=== PATIENT | female | born 1945 | race Caucasian/White ===

== ENCOUNTER → 2016-12-17 13:24 | Outpatient (CLI) | payer MEDICARE, OTHER ==
[2013-12-27 09:34] VITALS: BMI 40.0
[~2016-12-17 13:24] MED LIST: ACETAMINOPHEN325 MG PO; ASPIRIN EC81 MG PO; BENADRYL25 MG PO; CELEXA20 MG PO; CIPRO500 MG PO; CYCLOBENZAPRINE10 MG PO; LEVAQUIN750 MG PO; LISINOPRIL10 MG PO; MAG OXIDE 400MG; MAG-OXIDE400 MG PO; MUCINEX600 MG PO; MYSOLINE 50 MG50 MG PO; NASACORT AQ16.5 GM NS; NORCO 10/325 TA1 TA1 PO; NORVASC5 MG PO; NYSTATIN OINTME15 GM TP; OPTIVE EYE DROP30 ML EACH EYE; PACERONE200 MG PO; PRAVACHOL40 MG PO; PROTONIX40 MG PO; RELAFEN750 MG PO; REQUIP0.25 MG PO; RESTORIL15 MG PO; SYNTHROID50 MCG PO; SYSTANE 0.3-0.4%5 ML EACH EYE; VITAMIN D2000 UNIT
== END | disposition home or self-care (01) ==
LOC: D.MRI 13:24
DX: M54.5 Low back pain (principal)

== ENCOUNTER → 2017-05-02 15:41 | Outpatient (CLI) | payer MEDICARE, OTHER ==
[2013-12-27 09:34] VITALS: BMI 40.0
== END | disposition home or self-care (01) ==
LOC: D.CT 15:30
DX: R31.9 Hematuria, unspecified (principal)

== ENCOUNTER → 2017-12-01 09:12 | Outpatient (CLI) | payer MEDICARE, OTHER ==
[2013-12-27 09:34] VITALS: BMI 40.0
== END | disposition home or self-care (01) ==
LOC: D.RAD 09:12
DX: R13.10 Dysphagia, unspecified (principal)

== ENCOUNTER → 2018-06-15 20:20 | Outpatient (CLI) | payer MEDICARE, OTHER ==
[2013-12-27 09:34] VITALS: BMI 40.0
== END | disposition home or self-care (01) ==
LOC: D.MAMMO 13:00
DX: Z12.31 Encounter for screening mammogram for malignant neoplasm of breast (principal)

== ENCOUNTER 2019-04-09 07:10 | Day surgery (SDC) | payer MEDICARE, OTHER ==
[2019-04-06 11:47] LABS: HEMATOCRIT 41.3 % (36.0-48.0); HEMOGLOBIN 13.7 g/dL (12-16); MCH 31.9 pg (26.0-34.0); MCHC 33.2 g/dL (31.0-37.0); RBC 4.3 10x6/uL (4.00-5.40); RDW 14.4 % (11.5-14.5); WBC 7.8 10x3/uL (4.8-10.8)
[~2019-04-09] VITALS: Ht 167.6 cm; Wt 79.8 kg
[~2019-04-09 07:10] MED LIST changes: +COZAAR50 MG PO
[2019-04-09 07:31] VITALS: BP 132/67; Ht 167.6 cm; Wt 79.8 kg
[2019-04-09] MEDS ORDERED: HYDROCODON-ACE1 EA10 PO (09:34)
--- NOTE | 2019-04-09 10:53 | NUR ---
0944-REC'D FROM SURGERY. AWAKE AND ALERT, DENIES PAIN,DRESSING TO LEFT ARM CDI. CAP REFILL WNL. ABLE TO WIGGLE DIGITS. CL IN EASY REACH. FAMILY AT BEDSIDE.
--- NOTE | 2019-04-09 10:55 | NUR ---
1010-TOLERATED TRAY. AMBULATED TO RESTROOM AND URINATED. DRESSING CDI TO LEFT ARM, IN SLING, ABLE TO WIGGLE DIGITS. CAP REFILL WNL.DENIES PAIN. VSS. SPOUSE AT BEDSIDE. AWAITING FOR TRANSPORTATION HOME.
--- NOTE | 2019-04-09 10:55 | NUR ---
1000-FULL LIQUID TRAY TO ROOM.
--- NOTE | 2019-04-09 10:56 | NUR ---
1020-REMOVED IV FROM RIGHT HAND WITH CATH INTACT,DISPOSED INTO SHARPS.COVERED SITE WITH BANDAID. DRESSING CONTINUE TO BE CDI,WIGGLES DIGITS, CAP REFILL WNL.DENIES PAIN. REVIEWED POST OPERATIVE INSTRUCTIONS, FOLLOW UP APPOINTMENT. VERBALIZED UNDERSTANDING.
--- NOTE | 2019-04-09 10:57 | NUR ---
1045-DAUGHTER IN LAW ARRIVED TO DRIVE HOME. ESCORTED OUT VOA W/C,STABLE,DISCHARGE INSTRUCTIONS IN HAND
--- NOTE | 2019-04-09 11:27 | OP ---
PATIENT NAME: JAYESH MOJICA MEDICAL RECORD: [id number] :41 LOCATION:D.OPS ADMISSION DATE: SURGEON: JOHANN GALVAN MD DATE OF OPERATION: 04/09/2019 PREOPERATIVE DIAGNOSES: 1. Trigger thumb of the left hand. 2. Painful osteophyte MCP joint, second digit left hand. POSTOPERATIVE DIAGNOSES: 1. Trigger thumb of the left hand. 2. Painful osteophyte MCP joint, second digit left hand. PROCEDURES: 1. Release of trigger thumb, left hand. 2. Excision of painful osteophyte of the left MCP joint of her second digit. SURGEON: Dr. Johann Galvan OTOLARYNGOLOGY SURGEON: ARISTIDES Briceño ANESTHESIA: TIVA with regional. INTRAOPERATIVE COMPLICATIONS: None. SUMMARY OF PATHOLOGIC FINDINGS: The patient indeed has a trigger thumb with thickened A1 curtis. Furthermore, the patient had prominent nodularity, had been noted to be very painful in the past on the radial aspect of the dorsum of the second MCP joint. OPERATIVE SUMMARY IN DETAIL: After obtaining the appropriate preoperative orthopedic surgery consent as well as anesthetic consultation, evaluation, and clearance, the patient was brought to the operating room, was placed on table in supine position. After TIVA with regional was administered, tourniquet was placed about the proximal aspect of left upper extremity. Left upper extremity was then prepped and draped in routine sterile fashion. Incision was made over the base of the left thumb over the A1 curtis, taken gently down to the A1 curtis, which was identified and incised in its entirety. The tendon was inspected and was pristine. Having completed this, attention was turned to the MCP joint of the index finger. A small incision made over the prominence of the bone spur. This was gently dissected down. Care was taken to avoid damage to the dorsal bella, the bone spur was then rongeured and rasped smooth. The wound was then irrigated and the small incision of the dorsal bella was closed with 2-0 Vicryl. Both incisions were then closed with 4-0 Prolene in a routine interrupted fashion done by Raul Montes. Sterile dressing was applied. The patient was awakened and taken to the recovery room in stable condition. All final needle, instrument, and sponge counts were correct. TRANSINT:[id number] Voice Confirmation ID: [id number] DOCUMENT ID: [id number] OPERATIVE REPORT [id number] RIVERA MD, JOHANN DRISCOLL at 1127 CC: [id number] DICTATION DATE: 04/09/1937 SORORITY SUPERVISOR: 04/09/19 [address] [facility] [address] [place] [address]
== END 2019-04-09 10:35 | disposition home or self-care (01) ==
LOC: D.OPS 07:10 → D.PAN 09:15 → D.OPS 10:10 → D.PAN 10:10 → D.OPS 10:35
PROVIDERS: Anesthesiology; ATTEND Orthopaedic Surgery
DX: M65.312 Trigger thumb, left thumb (principal); M25.742 Osteophyte, left hand; M19.90 Unspecified osteoarthritis, unspecified site

== ENCOUNTER → 2019-12-10 11:32 | Outpatient (CLI) | payer MEDICARE, OTHER ==
[2019-04-09 07:31] VITALS: BMI 28.4
[~2019-12-10 11:32] MED LIST changes: +HYDROCODON-ACE1 EA10 PO
== END | disposition home or self-care (01) ==
LOC: D.MRI 11:30
PROVIDERS: ATTEND Family Medicine
DX: M54.5 Low back pain (principal)

== ENCOUNTER 2020-01-03 12:57 | Outpatient (CLI) | payer MEDICARE, OTHER ==
[~2020-01-03] VITALS: Ht 167.6 cm; Wt 104.5 kg
[2020-01-03 14:44] LABS: BILIRUBIN NEGATIVE (NEGATIVE); GLUCOSE NEGATIVE (NEGATIVE); KETONE NEGATIVE (NEGATIVE); NITRITE POSITIVE (NEGATIVE); UROBILINOGEN NORMAL (NORMAL)
[2020-01-03 14:47] LABS: BACTERIA MANY /hpf (NEGATIVE); EPITHELIAL CELLS 0-5 /hpf (0-5); RED CELLS - URINE 0-5 /hpf (0-5); WHITE CELLS - URINE 25-50 /hpf (NEGATIVE)
[2020-01-03 15:20] VITALS: BP 148/86; Ht 167.6 cm; Wt 104.5 kg
== END 2020-01-03 14:25 | disposition home or self-care (01) ==
LOC: D.LAB 12:57
PROVIDERS: ATTEND Specialist
DX: Z20.828 Contact with and (suspected) exposure to other viral communicable diseases (principal); R05 Cough; N39.0 Urinary tract infection, site not specified

== ENCOUNTER 2020-01-10 08:53 | Outpatient (CLI) | payer MEDICARE, OTHER ==
[~2020-01-10] VITALS: Ht 167.6 cm; Wt 86.4 kg
[2020-01-10 09:56] VITALS: Ht 167.6 cm; Wt 86.4 kg
[2020-01-10 10:32] LABS: BACTERIA FEW /hpf (NEGATIVE); BILIRUBIN NEGATIVE (NEGATIVE); EPITHELIAL CELLS 0-5 /hpf (0-5); GRANULAR CAST RARE /lpf (NONE SEEN); HYALINE CAST RARE /lpf (NONE SEEN); KETONE NEGATIVE (NEGATIVE); NITRITE NEGATIVE (NEGATIVE); RED CELLS - URINE RARE /hpf (0-5); UROBILINOGEN 4 mg/dL (NORMAL); WHITE CELLS - URINE RARE /hpf (NEGATIVE)
[2020-01-11] MEDS ORDERED: SUSTAINE EYE DROPS (10:16)
[2020-01-11] MEDS ORDERED: ZANAFLEX4 MG PO ×2 (10:17)
[2020-01-11] MEDS ORDERED: ALLEGRA D (10:18)
[2020-01-11] MEDS ORDERED: ULTRAM50 MG PO (10:20)
[2020-01-11] MEDS ORDERED: PROTONIX40 MG PO (10:20)
[2020-01-11] MEDS ORDERED: VIBRAMYCIN50 MG PO (10:21)
[2020-01-11] MEDS ORDERED: CLOTRIMAZOLE-BE30 ML TOPICAL (10:24)
[2020-01-11] MEDS ORDERED: MYCOSTATIN CREA15 GM (10:25)
== END 2020-01-10 09:35 | disposition home or self-care (01) ==
LOC: D.OPS 08:53
PROVIDERS: ATTEND Specialist
DX: N39.0 Urinary tract infection, site not specified (principal)

== ENCOUNTER 2020-01-11 09:14 | Day surgery (SDC) | payer MEDICARE, OTHER ==
[~2020-01-11] VITALS: Ht 167.6 cm; Wt 86.4 kg
--- NOTE | ~2020-01-11 | HEMODYNAMI ---
PATIENT:JAYESH MOJICA MEDICAL RECORD: [id number] : 41 LOCATION:AMI ADMISSION DATE: 01/11/20 Generatedon:01/11/202013:32 Patient name: JAYESH MOJICA Patient #: [id number] SSN: : 1945 Date of study: 01/11/2020 Page: Of Hemodynamic Procedure Report Patient Data Patient Demographics Procedure consent was obtained First Name: JAYESH Gender: Female Last Name: YUNIOR : 1945 [facility] Initial: EVI Age: 74 year(s) Patient #: [id number] Race: Unknown Additional ID: [id number] Contact details [address]: [address] [place] [address] State: [place] City: [place] Zip code: [address] Past Medical History Allergies: No known allergies Admission Admission Data Admission Date: 01/11/2020 Admission Time: 9:14 Height (in.): 66 BSA: 1.96 (m2) Height (cm.): 167.64 BMI: 30.67 (kg/m2) Weight (lbs.): 190 Weight (kg.): 86.18 Procedure Procedure Types Cath Procedure Peripheral Cath Diagnostic Procedure Wool Broker Peripheral Procedures Kyphoplasty Kyphoplasty Lumbar Procedure Description Procedure Date Procedure Date: 01/11/2020 Procedure Start Time: 12:44 Procedure Staff Name Function Grabiel Hunt MD Performing Physician Cece Lloyd RT Airplane Inspector Zaira Borrero RN Nurse Cristina Russell RT Scrub Trav Jordan MD Additional personnel Procedure Data Cath Procedure Fluoroscopy Diagnostic fluoroscopy Total fluoroscopy Time: 11 time: 11 min min Diagnostic fluoroscopy Total fluoroscopy dose: 738 dose: 738 mGy mGy Hemodynamics Rest BSA: 1.96 (m2) O2 Consumption: Estimated: 189.48 (ml/min) O2 Consumption indexed : Estimated:96.67 (ml/min/m) Heart Rate: 86 (bpm) Snapshots Pre Cath Intra NCS Post Cath Vital Signs Time Heart Resp SPO2 etCO2 NIBP (mmHg) Rhythm Pain Sedation Rate (ipm) (%) (mmHg) Status Level (bpm) 12:34:17 85 24 100 20.8 155/82(134) NSR 0 (11) 10(A) , No pain 12:38:37 45 100 5.9 149/83(121) NSR 0 (11) 10(A) , No pain 12:42:57 80 17 100 32 144/77(116) NSR 0 (11) 10(A) , No pain 12:47:15 83 18 98 32 137/82(108) NSR 0 (11) 10(A) , No pain 12:51:32 88 19 99 32 144/82(125) NSR 0 (11) 10(A) , No pain 12:55:58 86 17 99 26.1 128/73(102) NSR 0 (11) 10(A) , No pain 13:00:16 98 19 98 26.1 136/73(101) NSR 0 (11) 10(A) , No pain 13:04:32 91 17 98 32 123/74(98) NSR 0 (11) 10(A) , No pain 13:08:44 93 18 98 29 134/82(102) NSR 0 (11) 10(A) , No pain 13:12:58 87 36 93 0 120/71(95) NSR 0 (11) 10(A) , No pain 13:17:14 86 15 97 8.9 123/71(97) NSR 0 (11) 10(A) , No pain 13:21:30 89 27 97 11.1 124/76(98) NSR 0 (11) 10(A) , No pain 13:25:46 88 15 98 10.4 127/73(108) NSR 0 (11) 10(A) , No pain 13:30:02 87 18 98 2.2 124/77(101) NSR 0 (11) 10(A) , No pain Procedure Log Time Note 12:23:20 Patient Height : 66 inches 12:23:24 Patient Weight : 190 lbs 12:24:01 Time tracking: Regular hours (M-F 7:00 - 5:00) 12:24:43 Plan of Care:Hemodynamics will remain stable., Cardiac rhythm will remain stable., Comfort level will be maintained., Respiratory function will remain adequate., Patient/ family verbilizes understanding of procedure., Procedure tolerated without complication., Recovers from procedure without complications.. 12:25:06 Patient received from Outpatients to IR Alert and oriented. Tansferred to table in Prone position. 12:25:11 Signed procedure consent form obtained from patient. 12:25:17 H&P Date Dictated: 01/11/2020 Within 30 days and on chart., H&P Addendum completed by physician on day of procedure. (MUST COMPLETE FOR ALL OUTPATIENTS). 12:: Pre-procedure instructions explained to patient. :: Pre-op teaching completed and patient verbalized understanding. 12::23 Family unavailable. 12:: Patient NPO since Midnight. 12::32 Patient allergic to No known allergies 12::37 Is patient on blood thinner?No 12::42 Patient diabetic? No. 12::44 - 12:25:45 ----Pre-sedation anethsthesia assessment.----see anesthesia notes for monitoring of patient during procedure 12::19 - 12::36 Lumbar area was prepped with dura-prep and draped in sterile fashion 12:26:50 - 12::58 Use device set IR Diagnostic 12::59 Tegaderm 4 x 4 ([id number]) opened to sterile field. 12:27:00 Sterile Angiographic Pack opened to sterile field. 12:27:00 Bag Decanter (2002S) opened to sterile field. 12:29:35 SCOT BNCMNT CURV BALLOON [id number] opened to sterile field. 12:29:36 Apache BONE CEMENT WITH NEEDLE AUTOPLEX Kit opened to sterile field. 12:29:45 - 12:33:04 Vital chart was started 12:34:07 - 12:34:13 ECG and BP/O2 sat monitors applied to patient. 12:34:15 Baseline sample Acquired. 12:34:18 Full Disclosure recording started 12:34:54 Fire Safety Assessment: A--An alcohol-based skin anteseptic being used preoperatively., C--Open oxygen or nitrous oxide is being used. 12:43:32 Physician arrived 12:43:33 --------ALL STOP TIME OUT------ 12:43:33 Final Timeout: patient, procedure, and site verified with staff and physician. All members of the team are in agreement. 12:44:05 Procedure started. 12:44:13 Local anesthetic to Lumbar area with Lidocaine 1% by Grabiel Hunt MD.INITIAL ACCESS ONLY 12:50:22 Jamshidi needle introduced. 13:02:43 Kyphoplasty balloon introduced. 13:10:47 Cement introduced to vertebral body. 13:18:10 Jamshidi needle removed. 13:18:47 Procedure ended.(Physican Out) 13:21:26 Fluoroscopy time 11.00 minutes. 13:21:38 Fluoroscopy dose: 738 mGy 13:21:38 Flurop Dose total: 738 13:21:53 Procedure and supply charges have been captured, reviewed, submitted an d are correct. 13:32:19 Report given to Recovery Room. 13:32:54 Vital chart was stopped Device Usage Item Name Manufacture Quantity Catalog Hospital Part Current Minim al Lot# / Number Charge Number Stock Stock Serial# Code Tegaderm 4 x 3M 1 [id number] (1626W) Sterile Cardinal 1 [id number] 5 Angiographic Health Pack Bag Decanter Microtek 1 2001S [id number] [id number] (2001S) [employer] SCOT Scot 1 [id number] [id number] 1 BNCMNT CURV BALLOON [id number] Apache BONE Apache 1 [id number] CEMENT WITH NEEDLE AUTOPLEX Kit Signature Audit Bruno Stage Time Signature Unsigned Intra-Procedure 01/11/2020 Cece Lloyd 1:32:48 PM RT(R) [facility] [address] [place] [address]
[2020-01-11 09:53] LABS: BASOPHILS 0.2 % (0-2); EOSINOPHILS 0.6 % (0-7); HEMATOCRIT 49.8 % (36.0-48.0); HEMOGLOBIN 16.4 g/dL (12-16); IMMATURE GRANULOCYTES 0.1 % (0-5); LYMPHOCYTES 29.4 % (15-50); MCH 30.9 pg (26.0-34.0); MCHC 32.9 g/dL (31.0-37.0); MEAN PLATELET VOLUME 11.9 fL (7.4-10.4); MONOCYTES 8.4 % (2-11); NEUTROPHILS 61.3 % (40-80); PLATELET COUNT 266 10x3/uL (130-400); RDW 14.5 % (11.5-14.5); WBC 9.6 10x3/uL (4.8-10.8)
[2020-01-11 09:54] LABS: INR 0.94 (0.85-1.17); PROTIME 12.5 SECONDS (11.6-15.0)
[2020-01-11 09:55] LABS: ANION GAP 14.6 mmol/L (8-16); CALCIUM 9.6 mg/dL (8.5-10.1); CARBON DIOXIDE 27.7 mmol/L (21.0-32.0); CREATININE - SERUM 1.3 mg/dL (0.6-1.3); POTASSIUM - SERUM 3.3 mmol/L (3.5-5.1)
[2020-01-11 10:04] VITALS: Ht 167.6 cm; Wt 86.4 kg
[2020-01-11] MEDS ORDERED: SUSTAINE EYE DROPS (10:16)
[2020-01-11] MEDS ORDERED: ZANAFLEX4 MG PO ×2 (10:17)
[2020-01-11] MEDS ORDERED: ALLEGRA D (10:18)
[2020-01-11] MEDS ORDERED: PROTONIX40 MG PO (10:20)
[2020-01-11] MEDS ORDERED: ULTRAM50 MG PO (10:20)
[2020-01-11] MEDS ORDERED: VIBRAMYCIN50 MG PO (10:21)
[2020-01-11] MEDS ORDERED: CLOTRIMAZOLE-BE30 ML TOPICAL (10:24)
[2020-01-11] MEDS ORDERED: MYCOSTATIN CREA15 GM (10:25)
--- NOTE | 2020-01-11 14:03 | NUR ---
1342 RECORDING VS ORDERED ON POST PROCEDURE FORM AND IN THE PAPER CHART.
--- NOTE | 2020-01-11 15:31 | NUR ---
1515 REPORT GIVEN TO CAMILLA MEREDITH RN FOR TRANSFER OF CARE.
--- NOTE | 2020-01-11 17:48 | NUR ---
PT STATES PAIN IS 2/10. PER RAJESH SANTILLAN ADMINISTERED PRIOR TO DISCHARGE WA DR. ALICIA. SKIN TEAR NOTED JUST PROXIMAL TO IV TEGADERM. IV D/C'D WITH CANNULA ITNACT, PRESSURE APPLIED. INSTRUCTED PT TO APPLY EMELIA AFTER REMOVING COBAN. DISCHARGE INSTRUCTION GIVEN TO PT AND SONGABRIEL. BOTH VERBALIZED AN UNDERSTANDING. DISCHARGED IN STABLE CONDITION, WITHOUT C/O AND AMBULATES WITHOUT ASSIST. REPORTS PAIN IS REMARKABLY IMPROVED
== END 2020-01-11 17:30 | disposition home or self-care (01) ==
LOC: D.SP 09:14 → D.RAD 12:00 → D.SP 12:00
PROVIDERS: ATTEND Specialist
DX: M80.08XA Age-related osteoporosis with current pathological fracture, vertebra(e), initial encounter for fracture (principal)

== ENCOUNTER → 2020-02-18 10:58 | Outpatient (CLI) | payer MEDICARE, OTHER ==
[2020-01-11 10:04] VITALS: BMI 30.7
[~2020-02-18 10:58] MED LIST changes: +ALLEGRA D; +CLOTRIMAZOLE-BE30 ML TOPICAL; +MYCOSTATIN CREA15 GM; +SUSTAINE EYE DROPS; +ULTRAM50 MG PO; +VIBRAMYCIN50 MG PO; +ZANAFLEX4 MG PO
== END | disposition home or self-care (01) ==
LOC: D.RAD 10:58
PROVIDERS: ATTEND Specialist
DX: R06.02 Shortness of breath (principal)

== ENCOUNTER 2020-07-27 21:43 | Inpatient (IN) | payer MEDICARE, OTHER ==
[~2020-07-27] VITALS: Ht 165.1 cm; Wt 85.9 kg
[~2020-07-27 21:43] MED LIST changes: +AKWA TEARS15 ML EACH EYE; -ALLEGRA D; +ALLEGRA D PO; +ASPIRIN81 MG PO; +CALMOSEPTINE OI71 GM TOPICAL; +CARAFATE1 G PO; +LOVENOX40 MG/0.4 SC; +MECLIZINE HCL12.5 MG PO; +PREDNISONE10 MG PO; +PREDNISONE20 MG PO; -SUSTAINE EYE DROPS; +SUSTAINE EYE DROPS OP; +SYMBICORT 16010.2 GM INH; +VITAMIN B-1100 M1 PO; +VITAMIN C PO; +VITAMIN D1000 UNI2 PO; +XARELTO10 MG PO; +ZINC-220220 MG PO
[2020-07-27 23:04] LABS: BASOPHILS 0.4 % (0-2); EOSINOPHILS 1.1 % (0-7); HEMATOCRIT 41.9 % (36.0-48.0); HEMOGLOBIN 13.6 g/dL (12-16); IMMATURE GRANULOCYTES 0.3 % (0-5); LYMPHOCYTE ABS# 3.14 10x3/uL (1.18-3.74); LYMPHOCYTES 30.4 % (15-50); MCH 30.9 pg (26.0-34.0); MCHC 32.5 g/dL (31.0-37.0); MCV 95.2 fL (80.0-100.0); MEAN PLATELET VOLUME 11.9 fL (7.4-10.4); MONOCYTES 9.6 % (2-11); NEUTROPHIL ABS# 6.03 10x3/uL (1.56-6.13); NEUTROPHILS 58.2 % (40-80); RDW 14.4 % (11.5-14.5); WBC 10.3 10x3/uL (4.8-10.8)
[2020-07-27 23:07] LABS: PLATELET COUNT 272 10x3/uL (130-400)
[2020-07-27 23:17] LABS: BILIRUBIN NEGATIVE (NEGATIVE); KETONE NEGATIVE (NEGATIVE); NITRITE NEGATIVE (NEGATIVE); UROBILINOGEN NORMAL mg/dL (< 2)
[2020-07-27 23:18] LABS: BACTERIA MODERATE HPF (NONE SEEN); SQUAMOUS EPITHELIAL 0-5 HPF (0-4)
[2020-07-27 23:19] LABS: CALC OSMOLALITY 285 mosm/kg (275-300); CALCIUM 9.1 mg/dL (8.5-10.1); CARBON DIOXIDE 26.2 mmol/L (21.0-32.0); CHLORIDE - SERUM 108 mmol/L (98-107); CREATININE - SERUM 1.4 mg/dL (0.6-1.3); GLUCOSE 113 mg/dL (74-106); POTASSIUM - SERUM 4.2 mmol/L (3.5-5.1); SODIUM 142 mmol/L (136-145); UREA NITROGEN 17 mg/dL (7-18); eGFR NON AFRICAN AMERICAN 39 mL/min (90-120)
[2020-07-27 23:20] LABS: UDS - AMPHET NEGATIVE QUAL (NEGATIVE); UDS - BARB NEGATIVE QUAL (NEGATIVE); UDS - BENZO NEGATIVE QUAL (NEGATIVE); UDS - COCAINE NEGATIVE QUAL (NEGATIVE); UDS - OPIATE NEGATIVE QUAL (NEGATIVE); UDS - PCP NEGATIVE QUAL (NEGATIVE); UDS - THC NEGATIVE QUAL (NEGATIVE)
[2020-07-27] MEDS ORDERED: OMNICEF300 MG PO (23:23)
[2020-07-27 23:36] LABS: ALKALINE PHOSPHATASE 94 U/L (30-120); ALT (SGPT) 18 U/L (10-68); THYROID STIMULATING HORMONE 1.26 uIU/mL (0.36-3.74)
[2020-07-27 23:39] LABS: TROPONIN-I < 0.017 ng/mL (0.000-0.060)
[2020-07-28] VITALS (8 sets, daily range): BP systolic 148–185; BP diastolic 69–81; Ht 165.1 cm; Wt 85.9 kg
--- NOTE | 2020-07-28 02:10 | NUR ---
ADMIT TO ROOM 2110 FROM ER AT 0100. PT ALERT BUT CONFUSED WITH VERY POOR RECALL. ABLE TO GIVE PARTIAL HISTORY, THEN WANDERS OFF SUBJECT. ADMISSION ASSESSMENT AND HISTORY COMPLETED. HOME MEDS REVIEWED AND ARE ACCURATE PT CAN RECALL. CALL LIGHT IN REACH. SR UP X 3. PLACED CLOSE TO NURSES STATION FOR SUPERVISION. FALL PRECAUTIONS IN PLACE.
[2020-07-28] MEDS ORDERED: CARAFATE1 G PO (03:14)
[2020-07-28 07:28] LABS: APTT 23.2 SECONDS (22.8-39.4); INR 1.11 (0.85-1.17); PROTIME 13.2 SECONDS (11.6-15.0)
--- NOTE | 2020-07-28 08:48 | NUR ---
PT BRIEF CHANGED AT THIS TIME AND PULLED UP IN BED. PT GIVEN MEDS PER EMAR. PT AWAKE AND ALERT. NO NEEDS VOICED. CLWR.
--- NOTE | 2020-07-28 13:10 | NUR ---
PT LYING IN BED WITH HOB RAISED, PT AWAKE AND WATCHING TV. NO NEEDS VOICED. CLWR.
--- NOTE | 2020-07-28 15:56 | NUR ---
PT LYING IN BED WATCHING TV AT THIS TIME. RR EVEN NON LABORED. PT AWAKE AND ALERT, DENIES ANY PAIN OR NEEDS. CLWR.
--- NOTE | 2020-07-28 17:35 | NUR ---
OT NOTE: PT IS MILDLY CONFUSED. PT COMPLETED BED MOB WITH MOD A. PT COMPLETED SIT TO STAND WITH MOD A . PT COMPLETED BUE AROM WITH FUNCTIONAL TASKS WITH NO C/O PAIN. PT COMPLETED NIRMAL/DOFF SOCKS WITH MAX A. PT COMPLETED FACE HYGIENE WITH SETUP. [phone] THANK YOU,TABITHA ALVES
--- NOTE | 2020-07-29 03:24 | NUR ---
I have reviewed this patient and I concur with the Shift Assessment completed by the Licensed Practical Nurse today this shift.
[2020-07-29 03:53] VITALS: BP 123/69
[2020-07-29 05:10] LABS: BASOPHILS 0.6 % (0-2); HEMOGLOBIN 11.6 g/dL (12-16); IMMATURE GRANULOCYTES 0.1 % (0-5); LYMPHOCYTE ABS# 3.48 10x3/uL (1.18-3.74); LYMPHOCYTES 41.7 % (15-50); MCH 30.4 pg (26.0-34.0); MCHC 32.2 g/dL (31.0-37.0); MCV 94.5 fL (80.0-100.0); MEAN PLATELET VOLUME 11.6 fL (7.4-10.4); MONOCYTES 12.1 % (2-11); NEUTROPHIL ABS# 3.55 10x3/uL (1.56-6.13); NEUTROPHILS 42.5 % (40-80); PLATELET COUNT 260 10x3/uL (130-400); RBC 3.81 10x6/uL (4.00-5.40); RDW 14.8 % (11.5-14.5); WBC 8.4 10x3/uL (4.8-10.8)
[2020-07-29 05:40] LABS: ALBUMIN 2.3 g/dL (3.4-5.0); BILIRUBIN - TOTAL 0.24 mg/dL (0.2-1.3); CALCIUM 7.7 mg/dL (8.5-10.1); CARBON DIOXIDE 24.7 mmol/L (21.0-32.0); CREATININE - SERUM 1.2 mg/dL (0.6-1.3); MAGNESIUM - SERUM 1.8 mg/dL (1.8-2.4); PROTEIN - SERUM 5.5 g/dL (6.4-8.2)
[2020-07-29 05:41] LABS: ANION GAP 9.3 mmol/L (8-16)
--- NOTE | 2020-07-29 08:57 | NUR ---
AM MEDS GIVEN PER EMAR. PT AWAKE AND ALERT, PT APPEARS TO HAVE IMPROVED MENTAL STATUS THIS MORNING. PT SITTING UP IN BED AND ATE BREAKFAST. THERAPY ENTERED ROOM AT THIS TIME. NO NEEDS VOICED. CLWR.
[2020-07-29 08:59] VITALS: BP 176/80
--- NOTE | 2020-07-29 11:15 | NUR ---
MEDS GIVEN PER EMAR. PT SITTING UP IN BED WATCHING TV. RR EVEN NON LABORED. PT SON AT BEDSIDE TO VISIT. NO NEEDS VOICED AT THIS TIME. CLWR.
--- NOTE | 2020-07-29 11:39 | NUR ---
OT NOTE: PT ALERT AND ORIENTED. REPORTS FEELING BETTER. ATE BREAKFAST WITHOUT DIFFICULTY. BED MOB WITH SBA; AMB IN ROOM WITH WALKER AND CGA. SIMPLE GROOMING WITH SET UP.. PT STILL REMAINS WEAK, BUT SHOULD PROGRESS QUICKLY. ABLE TO PERFORM TOILETING WITH WALKER AND CGA. CONCHA PAYTON,OTR/L [phone]
[2020-07-29 12:19] VITALS: BP 153/72
[2020-07-29 17:41] VITALS: BP 158/80
--- NOTE | 2020-07-29 19:04 | NUR ---
LYING IN BED W/EYES CLOSED, AROUSES EASILY W/TACTILE STIMULI. RESP EVEN AND UNLABORED ON RA. NO DISTRESS NOTED.
[2020-07-29 21:12] VITALS: BP 182/87
[2020-07-30 00:03] VITALS: BP 168/88
[2020-07-30 04:52] VITALS: BP 168/82
[2020-07-30 05:04] LABS: BASOPHILS 0.6 % (0-2); EOSINOPHILS 2.1 % (0-7); HEMATOCRIT 39.9 % (36.0-48.0); IMMATURE GRANULOCYTES 0.2 % (0-5); MCH 30.9 pg (26.0-34.0); MCHC 32.6 g/dL (31.0-37.0); MCV 94.8 fL (80.0-100.0); MEAN PLATELET VOLUME 12.2 fL (7.4-10.4); MONOCYTES 13.2 % (2-11); NEUTROPHIL ABS# 5.58 10x3/uL (1.56-6.13); NEUTROPHILS 53.9 % (40-80); PLATELET COUNT 288 10x3/uL (130-400); RBC 4.21 10x6/uL (4.00-5.40); RDW 14.4 % (11.5-14.5); WBC 10.4 10x3/uL (4.8-10.8)
[2020-07-30 05:38] LABS: ALBUMIN 2.7 g/dL (3.4-5.0); BILIRUBIN - TOTAL 0.35 mg/dL (0.2-1.3); CALCIUM 8.4 mg/dL (8.5-10.1); CARBON DIOXIDE 24.1 mmol/L (21.0-32.0); MAGNESIUM - SERUM 1.6 mg/dL (1.8-2.4); PROTEIN - SERUM 6.4 g/dL (6.4-8.2)
[2020-07-30 05:47] LABS: ANION GAP 11.7 mmol/L (8-16); POTASSIUM - SERUM 2.8 mmol/L (3.5-5.1)
--- NOTE | 2020-07-30 06:36 | NUR ---
LYING IN BED AWAKE, ALERT, DENIES ANY C/O. RESP EVEN AND UNLABORED ON RA. NO DISTRESS NOTED.
[2020-07-30 08:00] VITALS: BP 170/75
--- NOTE | 2020-07-30 08:32 | NUR ---
AM MEDS GIVEN AT THIS TIME PER EMAR INCLUDING 20MEQ OF POTASSIUM D/T POTASSIUM LEVEL PER PROTOCOL. PT AWAKE AND ALERT, RR EVEN NON LABORED. PT ANSWERS QUESTIONS APPROP. NO NEEDS VOICED AT THIS TIME, BELONGINGS WITHIN REACH. CLWR.
[2020-07-30 11:00] VITALS: BP 168/84
--- NOTE | 2020-07-30 14:40 | NUR ---
PT LYING IN BED WITH HOB RAISED, RR EVEN NON LABORED. PT AWAKE AND WATCHING TV. NO NEEDS VOICED , CLWR.
[2020-07-30 15:00] VITALS: BP 152/72
--- NOTE | 2020-07-30 16:06 | NUR ---
PT LYING IN BED VISITING WITH DAUGHTER AT BEDSIDE, RR EVEN NON LABORED. NO NEEDS VOICED AT THIS TIME. CLWR.
--- NOTE | 2020-07-30 19:04 | NUR ---
LYING IN BED AWAKE, ALERT, ORIENTED. RESP EVEN AND UNLABORED ON RA. NO DISTRESS NOTED.
[2020-07-30 22:31] VITALS: BP 156/68
[2020-07-31 00:51] VITALS: BP 144/67
[2020-07-31 04:54] VITALS: BP 128/57
[2020-07-31 05:45] LABS: BASOPHILS 0.3 % (0-2); EOSINOPHILS 2.8 % (0-7); HEMATOCRIT 38.9 % (36.0-48.0); HEMOGLOBIN 12.6 g/dL (12-16); IMMATURE GRANULOCYTES 0.1 % (0-5); LYMPHOCYTE ABS# 3.41 10x3/uL (1.18-3.74); LYMPHOCYTES 36.4 % (15-50); MCH 30.7 pg (26.0-34.0); MCHC 32.4 g/dL (31.0-37.0); MCV 94.6 fL (80.0-100.0); MEAN PLATELET VOLUME 12.2 fL (7.4-10.4); MONOCYTES 13.8 % (2-11); NEUTROPHIL ABS# 4.36 10x3/uL (1.56-6.13); NEUTROPHILS 46.6 % (40-80); PLATELET COUNT 273 10x3/uL (130-400); RBC 4.11 10x6/uL (4.00-5.40); RDW 14.3 % (11.5-14.5); WBC 9.4 10x3/uL (4.8-10.8)
[2020-07-31 05:48] LABS: ALBUMIN 2.4 g/dL (3.4-5.0); ANION GAP 12.4 mmol/L (8-16); BILIRUBIN - TOTAL 0.32 mg/dL (0.2-1.3); CALCIUM 8.2 mg/dL (8.5-10.1); CREATININE - SERUM 1.1 mg/dL (0.6-1.3); MAGNESIUM - SERUM 1.9 mg/dL (1.8-2.4); POTASSIUM - SERUM 3.4 mmol/L (3.5-5.1)
[2020-07-31] MEDS ORDERED: NORVASC5 MG PO (09:14)
[2020-07-31] MEDS ORDERED: FLORAJEN3 CAPS460 MG PO (09:16)
[2020-07-31] MEDS ORDERED: OMNICEF300 MG PO (09:17)
[2020-07-31] MEDS ORDERED: OXYBUTYNIN CHLOR5 M1 PO (09:17)
[2020-07-31 10:19] VITALS: BP 134/75
--- NOTE | 2020-07-31 12:09 | NUR ---
DISCHARGE INSTRUCTIONS PROVIDED TO PATIENT. VERBALIZED UNDERSTANDING. DISCHARGED VIA WHEELCHAIR WITH FAMILY.
== END 2020-07-31 11:45 | disposition home or self-care (01) | DRG 689 ==
LOC: D.ER 21:43 → D.M2 23:59 → OBSVTIME 23:59 → D.M2 23:59
PROVIDERS: Family Medicine; ADMIT Family Medicine Adult Medicine; ATTEND Family Medicine Adult Medicine
DX: N39.0 Urinary tract infection, site not specified (principal); G93.41 Metabolic encephalopathy; I49.9 Cardiac arrhythmia, unspecified; H26.9 Unspecified cataract; I10 Essential (primary) hypertension; G47.33 Obstructive sleep apnea (adult) (pediatric); F41.9 Anxiety disorder, unspecified; E66.9 Obesity, unspecified; Z68.21 Body mass index [BMI] 21.0-21.9, adult; G62.9 Polyneuropathy, unspecified; G25.0 Essential tremor; Z87.01 Personal history of pneumonia (recurrent); Z86.16 Personal history of COVID-19

== ENCOUNTER 2020-09-03 08:08 | Outpatient (CLI) | payer MEDICARE, OTHER ==
[2020-07-28 10:03] VITALS: BMI 31.5
[~2020-09-03 08:08] MED LIST changes: +FLORAJEN3 CAPS460 MG PO; +OMNICEF300 MG PO; +OXYBUTYNIN CHLOR5 M1 PO
--- NOTE | 2020-09-03 14:46 | NUR ---
1005 MANOMETRY COMPLETED. PH TUBE INSERTED TO BE IN PLACE FOR 24 HOURS. PATIENT WILL RETURN AT 10 AM TOMORROW TO REMOVE TUBE AND RETURN BOX. TOLERATED PROCEDURE WELL. DC INSTRUCTIONS GIVEN. VOICES UNDERSTANDING. NO S/S OF ACUTE DISTRESS NOTED.
== END 2020-09-03 10:05 | disposition home or self-care (01) ==
LOC: D.OPS 08:08
PROVIDERS: ATTEND Internal Medicine Gastroenterology
DX: R13.10 Dysphagia, unspecified (principal); R14.2 Eructation